=== PATIENT | female | born 1990 | race Two or more races ===

== ENCOUNTER 2019-07-31 07:00 | Day surgery (SDC) | payer OTHER ==
[2019-07-31] MEDS ORDERED: NEXIUM 24HR20 MG PO (13:49)
== END 2019-07-31 13:00 | disposition home or self-care (01) ==
LOC: AMB-ENDOS 07:00
DX: D13.0 Benign neoplasm of esophagus (principal); K44.9 Diaphragmatic hernia without obstruction or gangrene